=== PATIENT | female | born 1980 | race Two or more races ===

== ENCOUNTER 2018-11-26 18:29 | Emergency (ER) | payer MEDICAID ==
--- NOTE | 2018-11-26 18:59 | ED Physician Chart ---
ED Chief Complaint/HPI - Patient Information Date Seen:: 11/26/18 Time Seen:: 18:50 Allergies:: Allergies Allergy/AdvReac Type Severity Reaction Status Date / Time No Known Allergies Allergy Verified 11/26/18 18:37 Vitals:: Vital Signs - 8 hr 11/26/18 18:37 Temp 100.7 F HR 113 RR 18 BP 129/78 O2 Sat % 99 Historian:: Patient Review:: Nurse's Note Reviewed ED Review of Systems - Review of Systems ENT: No earache, Sore throat Neck: No neck pain Cardio Vascular: Chest pain Pulmonary: No SOB GI: No nausea, No vomiting Musculoskeletal: No back pain Hematopoietic: No bruising Allergic/Immuno: No urticaria Neurological: No syncope ED Past Medical History - Past Medical History Past Medical History: Other (rhuematic fever past) Family Medical History - Family Member Mother History Unknown: Yes ED Physical Exam - Physical Examination General/Constitutional: Awake, Well-developed, well-nourished, Alert, GCS 15, Non-toxic appearing Head: Atraumatic Eyes: Lids, conjuctiva normal Skin: No rash ENMT: Oropharynx nl (erythema bilateral no abcess asymetry) Neck: Full ROM w/o pain Respiratory: Nl effort/Exclusion, Clear to Auscultation Cardio Vascular: RRR, No murmur, gallop, rubs, NL S1 S2 GI: No tenderness/rebounding/guarding Extremities: Full ROM Neuro/Psych: Alert/oriented, Normal sensory exam, Normal motor strength Misc: Normal back ED Assessment - Assessment General Assessment: pharangitis acute non exutative ED Septic Shock - . Is Septic Shock (SBP<90, OR Lactate>4 mmol\L) present?: No - <6hrs of presentation: Vital Signs: Vital Signs - 8 hr 11/26/18 18:37 Temp 100.7 F HR 113 RR 18 BP 129/78 O2 Sat % 99 ED Reassessment (Disposition) - Reassessment Reassessment Condition:: Unchanged - Aftercare/Follow up Instructions Aftercare/Follow-Up Instructions:: Counseled pt regarding lab results/diagnosis & need follow up - Patient Disposition Discharge/Transfer:: Home Condition at Disposition:: Stable (stop diarrhea hot potato voice reevaluation) , Unchanged (stop diarrhea hot potato voice immediate evaluation)
== END 2018-11-26 19:07 | disposition home or self-care (01) ==
LOC: ER 18:29
DX: J02.9 Acute pharyngitis, unspecified (principal)
CPT/HCPCS: Z7502